=== PATIENT | female | born 1995 | race Caucasian/White ===

== ENCOUNTER 2016-06-26 07:33 | Emergency (ER) | payer OTHER ==
[2016-06-26 07:46] VITALS: RESP 16
[2016-06-26] MEDS ORDERED: ONDANSETRON 4 MG ODT BU ONE (08:19)
[2016-06-26] MEDS ORDERED: ONDANSETRON 4 MG ODT ONE (08:19)
[2016-06-26 08:20] LABS: BASOPHILS % (AUTO) 1 % (0-3); EOSINOPHILS % (AUTO) 2 % (0-9); HEMATOCRIT 44 % (35-47); MEAN CORPUSCULAR HGB CONC 35.1 gm/dl (32.0-36.0); MEAN CORPUSCULAR VOLUME 86 fL (81-99); MONOCYTES % (AUTO) 6.4 % (0-12)
[2016-06-26 08:26] LABS: ALBUMIN 3.8 gm/dl (3.4-5.0); CALCIUM 8.5 mg/dl (8.5-10.1); POTASSIUM 3.9 mMol/L (3.5-5.1)
[2016-06-26] MEDS ORDERED: ACETAMINOPHEN 325 MG ONE (08:28)
[2016-06-26] MEDS ORDERED: ACETAMINOPHEN 325 MG PO ONE (08:28)
[2016-06-26 08:37] VITALS: TEMP 97.9
[2016-06-26 09:13] VITALS: BP 112/76; PULSE 80; O2SAT 99
== END 2016-06-26 09:12 | disposition home or self-care (01) | DRG 103 ==
LOC: ED 07:33
DX: R51 Headache (principal); V89.2XXA Person injured in unspecified motor-vehicle accident, traffic, initial encounter
CPT/HCPCS: 36415; 70450; 71010; 80053; 85025; 85610; 85730; 99283; 99284

== ENCOUNTER 2016-06-28 08:08 | Emergency (ER) | payer OTHER ==
[2016-06-28 08:23] VITALS: RESP 20; TEMP 98.6
[2016-06-28] MEDS ORDERED: ONDANSETRON 4 MG ODT BU ONE (08:38)
[2016-06-28] MEDS ORDERED: ONDANSETRON 4 MG ODT ONE (08:40)
[2016-06-28 08:48] VITALS: BP 114/61; PULSE 83; O2SAT 99
== END 2016-06-28 09:48 | disposition home or self-care (01) | DRG 90 ==
LOC: ED 08:08
DX: S06.0X0A Concussion without loss of consciousness, initial encounter (principal); V89.2XXA Person injured in unspecified motor-vehicle accident, traffic, initial encounter
CPT/HCPCS: 70450; 84703; 99283; 99284

== ENCOUNTER 2016-08-23 12:55 | Emergency (ER) | payer OTHER ==
[2016-08-23 12:55] VITALS: O2SAT 99
[2016-08-23 13:10] VITALS: RESP 18; TEMP 97.8
[2016-08-23 13:45] VITALS: BP 115/57; PULSE 72
== END 2016-08-23 13:45 | disposition home or self-care (01) | DRG 313 ==
LOC: ED 12:55
DX: R07.89 Other chest pain (principal)
CPT/HCPCS: 71010; 93005; 99282; 99283

== ENCOUNTER 2017-08-26 07:22 | Emergency (ER) | payer OTHER ==
[2017-08-26 07:44] VITALS: RESP 22; TEMP 97.6
[2017-08-26 10:01] VITALS: BP 120/69; PULSE 77; O2SAT 97
== END 2017-08-26 08:59 | disposition home or self-care (01) | DRG 914 ==
LOC: ED 07:22
DX: T14.8XXA Other injury of unspecified body region, initial encounter (principal); S53.402A Unspecified sprain of left elbow, initial encounter
CPT/HCPCS: 73070; 84703; 99282; 99283

== ENCOUNTER 2018-04-30 09:04 | Emergency (ER) | payer OTHER ==
[2018-04-30 09:28] VITALS: TEMP 97.4; O2SAT 100
[2018-04-30 09:45] LABS: APPEARANCE,URINE Clear; BILIRUBIN,URINE NEGATIVE (NEGATIVE); COLOR,URINE Yellow; GLUCOSE, URINE (UA) NEGATIVE (NEGATIVE); KETONES,URINE NEGATIVE (NEGATIVE); LEUKOCYTE ESTERASE ,URINE NEGATIVE (NEGATIVE); NITRATE,URINE NEGATIVE (NEGATIVE); OCCULT BLOOD,URINE NEGATIVE (NEG-TRACE); PH,URINE 6.5; UROBILINOGEN,URINE 0.2 (0.2-1.0 EU)
[2018-04-30 09:51] LABS: BACTERIA 1+ (< 1+); CRYSTALS NEGATIVE (0-3 AVE/HPF); EPITHELIAL CELLS 0-2 (SQUAMOUS); RBC,URINE 0-1 (0-3AV/HPF); WBC,URINE NEGATIVE (0-5AV/HPF)
[2018-04-30 11:30] VITALS: BP 100/75; PULSE 91; RESP 16
== END 2018-04-30 11:25 | disposition home or self-care (01) | DRG 948 ==
LOC: ED 09:04
DX: R52 Pain, unspecified (principal); V89.2XXA Person injured in unspecified motor-vehicle accident, traffic, initial encounter
CPT/HCPCS: 70450; 72125; 74177; 81001; 84703; 99283; Q9967

== ENCOUNTER 2018-05-10 17:15 | Emergency (ER) | payer OTHER ==
[2018-05-10 17:22] VITALS: BP 149/69; PULSE 92; RESP 16; TEMP 98.5; O2SAT 99
[2018-05-10 18:25] LABS: BASOPHILS % (AUTO) 1 % (0-3); EOSINOPHILS % (AUTO) 0 % (0-9); HEMATOCRIT 48 % (35-47); HEMOGLOBIN 15.8 gm/dl (12.0-15.5); LYMPHOCYTES % (AUTO) 24.3 % (10-50); MEAN CORPUSCULAR HEMOGLOBIN 29.7 pg (27.0-32.0); MEAN CORPUSCULAR VOLUME 90 fL (81-99); MONOCYTES % (AUTO) 4.9 % (0-12); NEUTROPHILS % (AUTO) 69.8 % (37-80)
[2018-05-10 18:44] LABS: AMPHETAMINES NEGATIVE (NEGATIVE); BARBITUATES NEGATIVE (NEGATIVE); BENZODIAZEPINES NEGATIVE (NEGATIVE); CANNABINOL(THC) NEGATIVE (NEGATIVE); COCAINE(COC) NEGATIVE (NEGATIVE); METHADONE NEGATIVE (NEGATIVE); METHAMPHETAMINES NEGATIVE (NEGATIVE); OPIATES(OPI) NEGATIVE (NEGATIVE); OXYCODONE(OXY) NEGATIVE (NEGATIVE); PROPOXYPHENE(PPX) NEGATIVE (NEGATIVE); TRICYCLIC ANTIDEPRESSANTS NEGATIVE (NEGATIVE)
[2018-05-10 18:49] LABS: ALKALINE PHOSPHATASE 67 IU/L (46-116); ALT 14 IU/L (14-63); AST 10 IU/L (15-37); BILIRUBIN,TOTAL 0.3 mg/dl (0.2-1.0); BLOOD UREA NITROGEN 9 mg/dl (7-18); CALCIUM 8.7 mg/dl (8.5-10.1); CARBON DIOXIDE 26.3 mEq/L (21-32); CHLORIDE 103 mMol/L (98-107); CREATININE 0.74 mg/dl (0.60-1.00); GLUCOSE 89 mg/dl (74-106); POTASSIUM 3.8 mMol/L (3.5-5.1); SODIUM 140 mMol/L (136-145); THYROID STIMULATING HORMONE 1.731 uIU/ml (0.358-3.740); TOTAL PROTEIN 7.6 gm/dl (6.4-8.2); TROP I < 0.017 ng/ml (0.000-0.056)
== END 2018-05-10 19:40 | disposition home or self-care (01) | DRG 310 ==
LOC: ED 17:15
DX: R00.0 Tachycardia, unspecified (principal); F41.9 Anxiety disorder, unspecified; R06.02 Shortness of breath; R07.9 Chest pain, unspecified
CPT/HCPCS: 71046; 80053; 80305; 84443; 84484; 84703; 85025; 85378; 93005; 99282; 99283

== ENCOUNTER 2018-06-27 22:39 | Emergency (ER) | payer OTHER ==
[2018-06-27 22:39] VITALS: O2SAT 99
[2018-06-27 23:26] VITALS: BP 135/80; PULSE 87; RESP 18; TEMP 98
[2018-06-27] MEDS ORDERED: KETOROLAC TROMETHAMINE 30 MG/ML SOL IM ONE (23:47)
[2018-06-27] MEDS ORDERED: KETOROLAC TROMETHAMINE 30 MG/ML SOL ONE (23:50)
== END 2018-06-28 00:18 | disposition home or self-care (01) | DRG 159 ==
LOC: ED 22:39
DX: K08.89 Other specified disorders of teeth and supporting structures (principal)
CPT/HCPCS: 96372; 99282; J1885

== ENCOUNTER 2018-07-07 08:36 | Emergency (ER) | payer OTHER ==
[2018-07-07] MEDS ORDERED: SODIUM CHLORIDE 0.9% 1000ML 1,000 ML IV ONE (09:20)
[2018-07-07 09:36] LABS: BASOPHILS % (AUTO) 1 % (0-3); EOSINOPHILS % (AUTO) 1 % (0-9); HEMATOCRIT 44 % (35-47); HEMOGLOBIN 14.6 gm/dl (12.0-15.5); LYMPHOCYTES % (AUTO) 32.3 % (10-50); MEAN CORPUSCULAR HEMOGLOBIN 29.7 pg (27.0-32.0); MEAN CORPUSCULAR HGB CONC 33.1 gm/dl (32.0-36.0); MEAN CORPUSCULAR VOLUME 90 fL (81-99); MONOCYTES % (AUTO) 6.2 % (0-12); NEUTROPHILS % (AUTO) 59.1 % (37-80)
[2018-07-07 09:41] LABS: ALBUMIN 3.7 gm/dl (3.4-5.0); BILIRUBIN,TOTAL 0.3 mg/dl (0.2-1.0); CALCIUM 8.8 mg/dl (8.5-10.1); CREATININE 0.66 mg/dl (0.60-1.00); POTASSIUM 3.7 mMol/L (3.5-5.1); TOTAL PROTEIN 6.8 gm/dl (6.4-8.2)
[2018-07-07 09:49] LABS: APPEARANCE,URINE Slightly Cloudy; BILIRUBIN,URINE NEGATIVE (NEGATIVE); COLOR,URINE Light yellow; GLUCOSE, URINE (UA) NEGATIVE (NEGATIVE); KETONES,URINE NEGATIVE (NEGATIVE); LEUKOCYTE ESTERASE ,URINE NEGATIVE (NEGATIVE); NITRATE,URINE NEGATIVE (NEGATIVE); OCCULT BLOOD,URINE 3+ (NEG-TRACE); UROBILINOGEN,URINE 0.2 (0.2-1.0 EU)
[2018-07-07 09:58] LABS: BACTERIA NEGATIVE (< 1+); CRYSTALS NEGATIVE (0-3 AVE/HPF); WBC,URINE 0-2 (0-5AV/HPF)
[2018-07-07 12:30] VITALS: RESP 16; TEMP 98.5
[2018-07-07 12:37] VITALS: BP 125/79; PULSE 71; O2SAT 99
== END 2018-07-07 10:41 | disposition home or self-care (01) | DRG 833 ==
LOC: ED 08:36
DX: O46.91 Antepartum hemorrhage, unspecified, first trimester (principal)
CPT/HCPCS: 80053; 81001; 84703; 85025; 96365; 99283

== ENCOUNTER 2018-07-19 22:21 | Emergency (ER) | payer OTHER ==
[2018-07-19] MEDS ORDERED: ALBUTEROL NEB SOL 2.5MG/3ML 1 VIAL SOL NEB ONE (22:39)
[2018-07-19] MEDS ORDERED: DIPHENHYDRAMINE 25 MG CAP PO ONE (22:43)
[2018-07-19] MEDS ORDERED: ALBUTEROL NEB SOL 2.5MG/3ML 1 VIAL SOL ONE (22:43)
[2018-07-19] MEDS ORDERED: DIPHENHYDRAMINE 25 MG CAP ONE (22:47)
[2018-07-19 22:58] VITALS: RESP 14; TEMP 96
[2018-07-19] MEDS ORDERED: PREDNISONE 20 MG TAB PO ONE (23:17)
[2018-07-19] MEDS ORDERED: PREDNISONE 20 MG TAB ONE (23:21)
[2018-07-19 23:33] VITALS: BP 129/69; PULSE 89; O2SAT 99
== END 2018-07-19 23:34 | disposition home or self-care (01) | DRG 916 ==
LOC: ED 22:21
DX: T78.49XA Other allergy, initial encounter (principal)
CPT/HCPCS: 99282; 99283; J7613; A9270-GY

== ENCOUNTER 2018-08-03 20:12 | Emergency (ER) | payer OTHER ==
[2018-08-03 20:18] VITALS: RESP 16; TEMP 95.9
[2018-08-03] MEDS ORDERED: SODIUM CHLORIDE 0.9% FLUSH 10 ML SOL IV PRN (20:27)
[2018-08-03] MEDS ORDERED: SODIUM CHLORIDE 0.9% 500 ML 500 ML IV ONE (20:30)
[2018-08-03] MEDS ORDERED: ONDANSETRON HCL 4 MG/2 ML SOL IV ONE (20:31)
[2018-08-03] MEDS ORDERED: ONDANSETRON HCL 4 MG/2 ML SOL ONE (20:37)
[2018-08-03] MEDS ORDERED: KETOROLAC TROMETHAMINE 30 MG/ML SOL IV ONE (21:00)
[2018-08-03] MEDS ORDERED: KETOROLAC TROMETHAMINE 30 MG/ML SOL ONE (21:03)
[2018-08-03 21:42] VITALS: BP 127/70; PULSE 72; O2SAT 93
== END 2018-08-03 21:52 | disposition home or self-care (01) | DRG 103 ==
LOC: ED 20:12
DX: R51 Headache (principal); R42 Dizziness and giddiness; R11.0 Nausea
CPT/HCPCS: 84703; 96365; 96374; 96375; 99282; 99284; J1885; J2405

== ENCOUNTER 2018-08-15 11:46 | Emergency (ER) | payer SELFPAY ==
[2018-08-15 12:21] VITALS: BP 114/71; PULSE 97; RESP 20; TEMP 98.3; O2SAT 100
[2018-08-15] MEDS ORDERED: LIDOCAINE 5% PATCH 1 PATCH TDM TOP ONE (14:08)
== END 2018-08-15 14:56 | disposition home or self-care (01) | DRG 563 ==
LOC: ED 11:46
DX: S83.91XA Sprain of unspecified site of right knee, initial encounter (principal)
CPT/HCPCS: 73562; 84703; 99283; A9270-GY; E0114; L1830

== ENCOUNTER 2018-08-18 07:48 | Emergency (ER) | payer SELFPAY ==
[2018-08-18 07:56] VITALS: PULSE 88; RESP 18; TEMP 96.9; O2SAT 99
[2018-08-18 08:04] VITALS: BP 122/66
== END 2018-08-18 11:28 | disposition home or self-care (01) | DRG 556 ==
LOC: ED 07:48
DX: M79.18 Myalgia, other site (principal)
CPT/HCPCS: 36415; 85379; 99283

== ENCOUNTER 2018-08-23 00:12 | Emergency (ER) | payer SELFPAY ==
[2018-08-23 00:14] VITALS: O2SAT 99
[2018-08-23 00:43] VITALS: BP 127/74; PULSE 71; RESP 18; TEMP 97.6
== END 2018-08-23 01:26 | disposition home or self-care (01) | DRG 556 ==
LOC: ED 00:12
DX: M25.561 Pain in right knee (principal)
CPT/HCPCS: 73560; 99282; 99283